=== PATIENT | female | born 2000 ===

== ENCOUNTER 2020-01-10 17:44 | Emergency (ER) | payer BC ==
[~2020-01-10] VITALS: Ht 160 cm; Wt 56.8 kg
[2020-01-10 19:10] LABS: CLARITY,URINE CLEAR (Clear); COLOR,URINE YELLOW (Yellow); GLUCOSE, URINE NEGATIVE (Neg); KETONES,URINE NEGATIVE (Neg); LEUKOCYTE ESTERASE ,URINE NEGATIVE (Neg); NITRITES, URINE NEGATIVE (Neg); OCCULT BLOOD,URINE MODERATE (Neg); PROTEIN,URINE NEGATIVE (Neg); UROBILINOGEN,URINE 0.2 E.U/dL (0.2-1.0)
[2020-01-10 19:12] LABS: URINE HCG NEGATIVE (NEG)
[2020-01-10 19:15] LABS: UA COLLECTION TYPE VOIDED
[2020-01-10] MEDS ORDERED: ibuprofen tablet 400 MG TABLET PO ONE (19:15)
[2020-01-10] MEDS ORDERED: ondansetron 4mg rapidly disintigrating tab PO ONE (19:15)
[2020-01-10] MEDS ORDERED: acetaminophen 325mg tablet PO ONE (19:15)
[2020-01-10 19:16] LABS: BACTERIA,URINE NONE SEEN /HPF (Neg); RBC,URINE 0-2 /HPF (0-2); SQUAMOUS EPITHELIAL CELL,UR MANY /LPF (FEW); WBC,URINE NONE SEEN /HPF (0-4)
[2020-01-10 19:43] VITALS: BP 124/83
--- NOTE | 2020-01-10 19:47 | NUR ---
awaiting us. pt reports she is from [facility] and is visiting the area on vacation. the pain is currently in the llq ofabdomen and non radiating. pain is 4 out of 10 and constant , but has episodes of increased pain. no history of such symptoms. states does have"stomach issues" but the current symptoms are notfamiliar with her previous stomach problems.
--- NOTE | 2020-01-10 20:47 | NUR ---
ULTRA SOUND AT BEDSIDE
--- NOTE | 2020-01-10 20:58 | NUR ---
KARLA CROWELL, PTTALKING WITH DR ALVARADO NOW. HE REPORTS SHE HAS A SIGNIFICANT OVARIAN CYST AND HAS REASON FOR HER PAIN. [facility] MANAGE THIS AND SHE SHOULDE F/U WITH OBGYN. PT JUST REPORTEDTHATHER PAIN WASMILD AND SHE VOIDED AND THE PAIN HAS INCREASED SOME.
== END 2020-01-10 21:12 | disposition home or self-care (01) ==
LOC: ER 17:45
DX: N83.202 Unspecified ovarian cyst, left side (principal); R10.32 Left lower quadrant pain; R11.0 Nausea; R50.9 Fever, unspecified; Z87.440 Personal history of urinary (tract) infections; Z72.89 Other problems related to lifestyle
CPT/HCPCS: 76856; 81001; 81025; 93976; 99284